=== PATIENT | female | born 1950 | race Caucasian/White ===

== ENCOUNTER 2020-05-25 07:30 | Day surgery (SDC) | payer MEDICARE ==
[~2020-05-25 07:30] MED LIST: LOSARTAN POT50 MG PO; NORVASC5 M1 PO; VITAMIN D1000 UNIT PO; XALATAN 0.005%2.5 ML OP
[2020-05-25 09:58] VITALS: BP 144/67
== END 2020-05-25 10:09 | disposition home or self-care (01) ==
LOC: ENDO 07:30 → ORM 09:00 → ENDO 10:09
PROVIDERS: ATTEND Surgery
PROC: 0DB98ZX Excision of Duodenum, Via Natural or Artificial Opening Endoscopic, Diagnostic (ICD-10-PCS; principal; 2020-05-25)
PROC: 0DB78ZX Excision of Stomach, Pylorus, Via Natural or Artificial Opening Endoscopic, Diagnostic (ICD-10-PCS; 2020-05-25)
PROC: 0DBP8ZX Excision of Rectum, Via Natural or Artificial Opening Endoscopic, Diagnostic (ICD-10-PCS; 2020-05-25)
DX: K29.81 Duodenitis with bleeding (principal); K29.71 Gastritis, unspecified, with bleeding; K44.9 Diaphragmatic hernia without obstruction or gangrene; K57.31 Diverticulosis of large intestine without perforation or abscess with bleeding; D12.8 Benign neoplasm of rectum; D64.9 Anemia, unspecified; I10 Essential (primary) hypertension; Z20.822 Contact with and (suspected) exposure to COVID-19

== ENCOUNTER 2021-03-22 06:53 | Day surgery (SDC) | payer MEDICARE ==
[~2021-03-22] VITALS: Ht 147.3 cm; Wt 63.5 kg
[2021-03-22 09:30] VITALS: BP 139/80
== END 2021-03-22 09:07 | disposition home or self-care (01) ==
LOC: ENDO 06:53 → ORM 10:35
PROVIDERS: ATTEND Surgery
PROC: 0DBP8ZX Excision of Rectum, Via Natural or Artificial Opening Endoscopic, Diagnostic (ICD-10-PCS; principal; 2021-03-22)
PROC: 0DBN8ZX Excision of Sigmoid Colon, Via Natural or Artificial Opening Endoscopic, Diagnostic (ICD-10-PCS; 2021-03-22)
PROC: 0DJ08ZZ Inspection of Upper Intestinal Tract, Via Natural or Artificial Opening Endoscopic (ICD-10-PCS; 2021-03-22)
DX: Z08 Encounter for follow-up examination after completed treatment for malignant neoplasm (principal); D12.5 Benign neoplasm of sigmoid colon; K62.1 Rectal polyp; K64.8 Other hemorrhoids; K44.9 Diaphragmatic hernia without obstruction or gangrene; K57.30 Diverticulosis of large intestine without perforation or abscess without bleeding; I10 Essential (primary) hypertension; Z85.048 Personal history of other malignant neoplasm of rectum, rectosigmoid junction, and anus

== ENCOUNTER 2021-08-13 09:14 | Observation (INO) | payer MEDICARE ==
[2021-08-13] VITALS (27 sets, daily range): BP systolic 103–180; BP diastolic 61–113
[~2021-08-13] VITALS: Ht 147.3 cm; Wt 70.0 kg
[2021-08-13 10:17] LABS: HEMATOCRIT 44.3 % (37.0-47.0); IMMATURE GRANULOCYTES 0.3 % (0.0-5.0); MEAN CELL VOLUME 92.5 fL CALC (80.0-100.0); MEAN CORPUSCULAR HGB 31.3 pG CALC (26.0-32.0); MEAN CORPUSCULAR HGB CONC 33.9 g/dL CAL (32.0-36.0); NEUT# 5.05 thou/uL (2.00-7.15); RED BLOOD COUNT 4.79 mill/uL (4.20-5.60); RED CELL DISTRI WIDTH 16.1 % (11.5-15.5)
[2021-08-13 10:33] LABS: ALBUMIN 4.9 g/dL (3.2-5.0); ANION GAP 20 (6-22 (CALC)); BUN 14 mg/dL (8-23); BUN/CREATININE RATIO 12 (12-20 (CALC)); CARBON DIOXIDE 21 mmol/l (22-30); CHLORIDE 97 mmol/l (95-108); CREATININE 1.1 mg/dL (0.5-1.0); GFR 49 ML/MIN (>=60 (CALC)); GFR FOR AFR.AMER. 60 ML/MIN (>=60 (CALC)); LIPASE 502 u/l (23-300); POTASSIUM 3.8 mmol/l (3.5-5.1); SGOT/AST 45 u/l (9-36); SODIUM 134 mmol/l (137-146); TOTAL PROTEIN 9.1 g/dL (6.3-8.2)
[2021-08-13 10:35] LABS: ACT PARTIAL THROMBO TIME 34.5 SECONDS (20.0-32.5); INTERNATIONAL NORMALIZED RATIO 1.1 RATIO (0.7-1.3); PROTHROMBIN TIME 11.6 SECONDS (9.0-12.5)
[2021-08-13 10:45] LABS: ALKALINE PHOSPHATASE 86 u/l (38-126); BILIRUBIN, TOTAL 1.6 mg/dL (0.0-1.4)
[2021-08-13] MEDS ORDERED: DILT-XR180 MG PO (12:19)
[2021-08-13] MEDS ORDERED: XARELTO15 MG PO (12:20)
[2021-08-14] VITALS (21 sets, daily range): BP systolic 105–151; BP diastolic 57–85
[2021-08-14 06:11] LABS: HEMATOCRIT 39.8 % (37.0-47.0); HEMOGLOBIN 13.3 g/dl (12.0-16.0); MEAN CELL VOLUME 93.6 fL CALC (80.0-100.0); MEAN CORPUSCULAR HGB 31.3 pG CALC (26.0-32.0); MEAN CORPUSCULAR HGB CONC 33.4 g/dL CAL (32.0-36.0); RED BLOOD COUNT 4.25 mill/uL (4.20-5.60)
[2021-08-14 06:33] LABS: ALBUMIN 4.1 g/dL (3.2-5.0); BILIRUBIN, TOTAL 1.3 mg/dL (0.0-1.4); CREATININE 1.2 mg/dL (0.5-1.0); MAGNESIUM 2.1 mg/dL (1.6-2.3); POTASSIUM 3.9 mmol/l (3.5-5.1); TOTAL PROTEIN 7.7 g/dL (6.3-8.2)
[2021-08-14] MEDS ORDERED: LOPRESSOR25 M1 PO (09:12)
== END 2021-08-14 10:30 | disposition home or self-care (01) ==
LOC: ED 09:14 → ED-I 12:05 → ED 12:22 → ICU 12:23
PROVIDERS: ADMIT Internal Medicine; ATTEND Internal Medicine
DX: I48.91 Unspecified atrial fibrillation (principal); I12.9 Hypertensive chronic kidney disease with stage 1 through stage 4 chronic kidney disease, or unspecified chronic kidney disease; N18.9 Chronic kidney disease, unspecified; D64.9 Anemia, unspecified; K21.9 Gastro-esophageal reflux disease without esophagitis; Z85.038 Personal history of other malignant neoplasm of large intestine; Z90.49 Acquired absence of other specified parts of digestive tract; Z20.822 Contact with and (suspected) exposure to COVID-19
CPT/HCPCS: Q9967

== ENCOUNTER 2021-11-20 03:17 | Observation (INO) | payer MEDICARE ==
[2021-11-20] VITALS (50 sets, daily range): BP systolic 104–168; BP diastolic 54–99
[~2021-11-20] VITALS: Ht 147.3 cm; Wt 68.0 kg
[~2021-11-20 03:17] MED LIST changes: +DILT-XR180 MG PO; +LOPRESSOR25 M1 PO; +XARELTO15 MG PO
--- NOTE | 2021-11-20 03:19 | NUR ---
PT TO ROOM 12
[2021-11-20 03:53] LABS: HEMATOCRIT 36.5 % (37.0-47.0); HEMOGLOBIN 12.5 g/dl (12.0-16.0); IMMATURE GRANULOCYTES 0.2 % (0.0-5.0); MEAN CELL VOLUME 89.2 fL CALC (80.0-100.0); MEAN CORPUSCULAR HGB 30.6 pG CALC (26.0-32.0); MEAN CORPUSCULAR HGB CONC 34.2 g/dL CAL (32.0-36.0); NEUT# 7.93 thou/uL (2.00-7.15); RED BLOOD COUNT 4.09 mill/uL (4.20-5.60); RED CELL DISTRI WIDTH 14.9 % (11.5-15.5)
--- NOTE | 2021-11-20 03:55 | NUR ---
CARDIZEM TITRATED TO 10MG/H. AWAITING BOLUS FROM TELEMETRY RN. WILL CONTINUE TO MONITOR CLOSELY.
[2021-11-20 04:02] LABS: ALBUMIN 4.6 g/dL (3.2-5.0); ALKALINE PHOSPHATASE 72 u/l (38-126); ANION GAP 25 (6-22 (CALC)); BILIRUBIN, TOTAL 1.4 mg/dL (0.0-1.4); BUN 19 mg/dL (8-23); BUN/CREATININE RATIO 14 (12-20 (CALC)); CHLORIDE 96 mmol/l (95-108); CREATININE 1.3 mg/dL (0.5-1.0); GFR FOR AFR.AMER. 49 ML/MIN (>=60 (CALC)); GFR OTHER RACES 41 ML/MIN (>=60 (CALC)); POTASSIUM 4.2 mmol/l (3.5-5.1); SGOT/AST 58 u/l (9-36); SODIUM 132 mmol/l (137-146); TOTAL PROTEIN 8.1 g/dL (6.3-8.2)
[2021-11-20 04:03] LABS: D-DIMER 0.62 mg/L (0.19-0.60)
[2021-11-20 04:04] LABS: CARBON DIOXIDE 15 mmol/l (22-30)
[2021-11-20 04:06] LABS: ACT PARTIAL THROMBO TIME 27.7 SECONDS (20.0-32.5); PROTHROMBIN TIME 10.4 SECONDS (9.0-12.5)
[2021-11-20 04:14] LABS: MYOGLOBIN 77 ng/mL (0 - 62)
--- NOTE | 2021-11-20 04:30 | NUR ---
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
[2021-11-20] MEDS ORDERED: LATANOPROST0.005 % OU (05:49)
--- NOTE | 2021-11-20 06:02 | NUR ---
HR 97 -101 WHILE AT REST.
--- NOTE | 2021-11-20 06:04 | NUR ---
PT AGREES WITH PLAN FOR ADMISSION.
--- NOTE | 2021-11-20 06:09 | NUR ---
Admission Note Report Given to: KRISSY GUTIERREZ Transported by: X Wheelchair Stretcher Transported with: X Nurse Transporter X Patent IV O2 X Insurance Solicitor Location: X ICU [facility] TRANSPORTED BY KRISSY NGUYEN
--- NOTE | 2021-11-20 06:21 | NUR ---
IV DISLODGED WHILE IN WHEELCHAIR FOR TRANSPORT TO ICU. CATH INTACT. BLEEDING CONTROLLED.
--- NOTE | 2021-11-20 06:33 | NUR ---
PATIENT ARRIVED VIA WHEELCHAIR FROM ER. ARRIVED AT 0633. ALERT AND ORIENTED. RESP EVEN AND UNLABORED. NO S/S OF DISTRESS NOTED. IV INFUSING CARDIZEM. PATIENT ORIENTED TO ROOM, CALL LIGHT. AND BED. FALL AND SAFTEY PRECAUTIONS IN PLACE. PLAN OF CARE DISCUSSED. PATIENT INFORMED TO CALL WITH ANY QUESTIONS OR CONCERNS.
[2021-11-20 09:33] LABS: URINE BLOOD DIPSTICK LARGE (NEGATIVE); URINE COLOR YELLOW; URINE GLUCOSE - DIPSTICK NEGATIVE (NEGATIVE); URINE KETONE >=80 mg/dL (NEGATIVE); URINE LEUK ESTERASE NEGATIVE (NEGATIVE); URINE PROTEIN - DIPSTICK 100 mg/dL (NEG-TRACE); URINE SPECIFIC GRAVITY >=1.030; URINE UROBILINOGEN - DIPSTICK 0.2 E.U./dL (0.2)
[2021-11-20 09:35] LABS: URINE BILIRUBIN - DIPSTICK NEGATIVE (NEGATIVE); URINE NITRITE - DIPSTICK NEGATIVE (Negative); URINE SQUAMOUS EPITHELIAL CELL RARE EPI/hpf (0-FEW)
[2021-11-20 10:06] LABS: CREATININE 1.3 mg/dL (0.5-1.0)
[2021-11-20 13:22] LABS: HEMATOCRIT 33.4 % (37.0-47.0); HEMOGLOBIN 11.4 g/dl (12.0-16.0); IMMATURE GRANULOCYTES 0.4 % (0.0-5.0); MEAN CELL VOLUME 87.9 fL CALC (80.0-100.0); MEAN CORPUSCULAR HGB CONC 34.1 g/dL CAL (32.0-36.0); NEUT# 4.75 thou/uL (2.00-7.15); RED BLOOD COUNT 3.8 mill/uL (4.20-5.60); RED CELL DISTRI WIDTH 14.8 % (11.5-15.5)
--- NOTE | 2021-11-20 19:45 | NUR ---
PATIENT LAYING IN BED AT THIS TIME ALERT AND ORIENTED X 3 AND DENIES ANY PAIN OR SHORTNESS OF BREATH AND IS ON ROOM AIR AT THIS TIME. COAT CHECKER DONE SEE [id number] STERILE TECHNICIAN SHOWING A-FIB AND HR OF 85. PATIENT PRESENTS WIHT NO EDEMA NOTED. PATIENT DOES HAVE SOME OLD BURISES NOTED AND PATIENT STATES "SINCE I AM ON BLOOD THINNERS I GET THEM ALOT FROM BUMPING INTO THINGS" PATIENT DOES DENIE ANY FALLS. LUNG PEREZ ARE CLEAR AND BOWEL SOUNDS ARE ACTIVE IN ALL FOUR QUADS. SIDERAILS ARE UP CALL LIGHT IS WIHTIN REACH WILL CONTINUE TO MONITOR.
--- NOTE | 2021-11-20 20:44 | NUR ---
PATIENT REPOSITIONED IN BED AT THIS TIME. PATIENT LEX ANY NEEDS AND OR PAIN AT THIS TIME. SIDERAILS ARE UP X 2 CALL LIGHT WITHIN REACH.
--- NOTE | 2021-11-20 22:00 | NUR ---
PATIENT RESTING IN BED AT THIS TIME. PATIENT DENEIS ANY PAIN CRULLER MAKER READING AFIB AND HR OF 89. SPO2 AT THIS TIME IS 96%. WILL CONTINUE TO MONITOR.
--- NOTE | 2021-11-20 23:38 | NUR ---
PATIENT RESTING IN BED AT THIS TIME DENIES ANY PAIN AND OR NEEDS TELEGRAPH OPERATOR READING 76 AT THIS TIME. BP IS 119/77 AND SPO2 IS CURRENTLY 93%. SIDERAILS ARE UP CALL LIGHT IS WITHIN REACH. WILL CONTINUE TO MONITOR.
[2021-11-21] VITALS (18 sets, daily range): BP systolic 114–143; BP diastolic 67–93
--- NOTE | 2021-11-21 02:05 | NUR ---
PATIENT RESTING IN BED WITH EYES CLOSED RESPIRATIONS EASY AND UNLABORED. RECEPTION MANAGER READING AFIB HR 81 SIDERAILS ARE UP CALL LIGHT IS WITHIN REACH.
--- NOTE | 2021-11-21 03:53 | NUR ---
PATIENT AWAKE AND ASSISTED TO THE BATHROOM AND BACK AT THIS TIME. PATIENT DENIES ANY PAIN AND STATES "I FEEL SO GOOD NOW". ELECTRIC MELT OPERATOR IS SHOWING AFIB AND HR OF 84 CURRENT BP IS 123/81 SPO2 IS 98% ON ROOM AIR. SIDERAILS ARE UP CALL LIGHT IS WITHIN REACH
[2021-11-21 06:01] LABS: HEMATOCRIT 34.9 % (37.0-47.0); HEMOGLOBIN 11.9 g/dl (12.0-16.0); MEAN CELL VOLUME 89.7 fL CALC (80.0-100.0); MEAN CORPUSCULAR HGB 30.6 pG CALC (26.0-32.0); MEAN CORPUSCULAR HGB CONC 34.1 g/dL CAL (32.0-36.0); RED BLOOD COUNT 3.89 mill/uL (4.20-5.60); RED CELL DISTRI WIDTH 14.9 % (11.5-15.5)
[2021-11-21 06:04] LABS: ANION GAP 10 (6-22 (CALC)); BUN 18 mg/dL (8-23); BUN/CREATININE RATIO 17 (12-20 (CALC)); CARBON DIOXIDE 20 mmol/l (22-30); CHLORIDE 106 mmol/l (95-108); GFR FOR AFR.AMER. > 60 ML/MIN (>=60 (CALC)); GFR OTHER RACES 55 ML/MIN (>=60 (CALC)); POTASSIUM 3.4 mmol/l (3.5-5.1); SODIUM 133 mmol/l (137-146)
--- NOTE | 2021-11-21 09:34 | NUR ---
PT UP TO BR, STEDY GAIT, VERY ANXIOUS TO GO HOME, REMOVED HER IV AND MONITOR LEADS, NOT RESPONSIVE TO TEACHING, DR URIARTE HAS BEEN IN TO SEE PT AND SHE IS BEING D/C'D TO HOME, PT TO FOLLOW UP WITH BHAVESH RAMIREZ, D/C INSTRUCTIONS BEING GIVEN
== END 2021-11-21 09:50 | disposition home or self-care (01) ==
LOC: ED 03:17 → ED-I 04:55 → ED 05:08 → ICU 05:09
PROVIDERS: Family Medicine; ADMIT Hospitalist; ATTEND Hospitalist
DX: I48.91 Unspecified atrial fibrillation (principal); K52.9 Noninfective gastroenteritis and colitis, unspecified; E87.1 Hypo-osmolality and hyponatremia; I10 Essential (primary) hypertension; N17.9 Acute kidney failure, unspecified; F10.10 Alcohol abuse, uncomplicated; Z85.048 Personal history of other malignant neoplasm of rectum, rectosigmoid junction, and anus; Z79.01 Long term (current) use of anticoagulants; Z90.49 Acquired absence of other specified parts of digestive tract; Z20.822 Contact with and (suspected) exposure to COVID-19

== ENCOUNTER 2022-05-16 06:59 | Day surgery (SDC) | payer MEDICARE ==
[~2022-05-16 06:59] MED LIST changes: +LATANOPROST0.005 % OU
[2022-05-16 09:04] VITALS: BP 112/74
== END 2022-05-16 09:27 | disposition home or self-care (01) ==
LOC: ENDO 06:59 → ORM 09:00 → ENDO 09:27
PROVIDERS: ATTEND Surgery
PROC: 0DJD8ZZ Inspection of Lower Intestinal Tract, Via Natural or Artificial Opening Endoscopic (ICD-10-PCS; principal; 2022-05-16)
DX: Z12.11 Encounter for screening for malignant neoplasm of colon (principal); K57.30 Diverticulosis of large intestine without perforation or abscess without bleeding; K64.4 Residual hemorrhoidal skin tags; I10 Essential (primary) hypertension; Z85.048 Personal history of other malignant neoplasm of rectum, rectosigmoid junction, and anus